=== PATIENT | male | born 1960 | race Caucasian/White ===

== ENCOUNTER 2019-05-26 07:42 | Outpatient (CLI) | payer OTHER | END 2019-05-26 13:09 | disposition home or self-care (01) | LOC: TOM 07:42 | DX: K42.9 Umbilical hernia without obstruction or gangrene (principal) ==

== ENCOUNTER 2019-07-13 05:45 | Day surgery (SDC) | payer OTHER ==
[2019-07-13] MEDS ORDERED: PERCOCET 5-3251 EACH PO (16:42)
[2019-07-13] MEDS ORDERED: NEURONTIN300 MG PO (16:43)
[2019-07-13] MEDS ORDERED: COLACE100 MG PO (16:44)
== END 2019-07-13 18:56 | disposition home or self-care (01) ==
LOC: CIR.AMB 05:45
DX: K42.0 Umbilical hernia with obstruction, without gangrene (principal)